=== PATIENT | female | born 1970 | race Caucasian/White ===

== ENCOUNTER 2023-12-14 16:05 | Outpatient (CLI) | payer OTHER, SELFPAY ==
--- NOTE | ~2023-12-14 | XR_ITS ---
XR hip LT min 2V DATE: 12/14/2023 16:27 INDICATION: Medial left hip pain for one year. No injury. Lateral left hip pain for past 3 days after riding a bicycle and physical therapy. TECHNIQUE: AP and lateral views of left hip COMPARISON: None FINDINGS: No fracture or dislocation, avascular necrosis or bone destruction. Left hip joint space ap pears well preserved. Normal alignment at the pubic symphysis and left sacroiliac joint. IMPRESSION: Negative Reviewed, dictated and finalized at location B. IMPRESSION: Negative
== END 2023-12-14 16:06 ==
PROVIDERS: Visit Provider Clinical Nurse Specialist
DX: M25.552 Pain in left hip (principal)
CPT/HCPCS: 73502

== ENCOUNTER 2024-01-24 13:07 | Outpatient (CLI) | payer OTHER, SELFPAY ==
--- NOTE | ~2024-01-24 | CT_ITS ---
CT of the Abdomen and Pelvis: Indication: Abdominal pain Technique: 2.5 mm axial scans were obtained through the abdomen and pelvis following intravenous adm inistration of 100 cc of Omnipaque 350. Dose reduction technique was used on this scan by utilizing a utomated exposure control and iterative reconstruction technique. The dose-length product (DLP) was 6 72.99 mGy-cm. Findings: Scans through the lung bases are unremarkable. The liver, spleen, pancreas, gallbladder, adrenals and kidneys are within normal limits. No evidence of aortic aneurysm. No lymphadenopathy. No bowel obstruction or bowel wall thickening. There is no evidence to suggest acute appendicitis. Images through the pelvis were performed. Urinary bladder unremarkable. No pelvic mass seen. No ascit es. Impression: No significant abnormalities seen. Reviewed, dictated and finalized at location . Impression: No significant abnormalities seen.
== END 2024-01-24 13:08 ==
LOC: MICIMG 13:08
PROVIDERS: PCP Internal Medicine; Visit Provider Surgery
DX: R10.32 Left lower quadrant pain (principal)
CPT/HCPCS: 74177; Q9967

== ENCOUNTER 2024-06-20 14:55 | Outpatient (CLI) | payer OTHER, SELFPAY ==
--- NOTE | ~2024-06-20 | CT_ITS ---
EXAMINATION: CT abdomen pelvis w con DATE: 06/20/2024 15:53 INDICATION: Left lower quadrant abdominal pain. TECHNIQUE: Computed tomography (CT) of the abdomen and pelvis was performed with 100 mL Omnipaque 350 intravenous contrast. Automated exposure control and iterative reconstruction technique were employe d. The dose-length product was 441.68 mGy-cm. COMPARISON: CT abdomen and pelvis 01/24/2024 FINDINGS: The visualized portions of lung bases demonstrate mild atelectasis. No pleural effusion. Th e heart size is normal. No pericardial effusion. The liver, gallbladder, spleen, pancreas, adrenal gl ands, and kidneys are normal. There are scattered diverticula in the colon. There is fat stranding ar ound a sigmoid diverticulum with local bowel wall thickening, consistent with diverticulitis. There a re no dilated loops of bowel. The appendix is not visualized. There is no free intraperitoneal fluid. There is mild lumbar spondylosis and moderate thoracic spondylosis. IMPRESSION: 1. Acute sigmoid diverticulitis. No perforation or abscess. Reviewed, dictated and finalized at location A.
== END 2024-06-20 14:56 | disposition home or self-care (01) ==
PROVIDERS: PCP Internal Medicine; Visit Provider Clinical Nurse Specialist
DX: K57.32 Diverticulitis of large intestine without perforation or abscess without bleeding (principal)
CPT/HCPCS: 74177; Q9967

== ENCOUNTER 2024-07-12 14:43 | Outpatient (CLI) | payer OTHER, SELFPAY ==
[2024-07-12 18:51] LABS: CRP < 0.5 mg/dL (<1.0)
[2024-07-12 19:01] LABS: Erythrocyte Sedimentation Rate 11 mm/hr (0-20)
[2024-07-16 14:44] LABS: Immunoglobulin A 239 mg/dL (47-310); TTG IGA AB <1.0 U/mL
== END 2024-07-12 14:44 | disposition home or self-care (01) ==
LOC: ANHGOSHLAB 14:45
PROVIDERS: PCP Internal Medicine; Visit Provider Nurse Practitioner
DX: R14.0 Abdominal distension (gaseous) (principal); R19.8 Other specified symptoms and signs involving the digestive system and abdomen
CPT/HCPCS: 36415; 82784; 85652; 86140; 86364

== ENCOUNTER 2024-09-08 12:19 | Outpatient (CLI) | payer OTHER, SELFPAY ==
--- NOTE | ~2024-09-08 | MR_ITS ---
EXAMINATION: MR pelvis wo/w con DATE: 09/08/2024 13:44 INDICATION: Left lower quadrant abdominal pain. TECHNIQUE: Magnetic resonance imaging (MRI) of the pelvis was performed without and with 15 mL MultiH ance intravenous contrast. COMPARISON: CT abdomen and pelvis 06/20/2024 FINDINGS: There are no dilated loops of bowel. There is mild fat stranding around a diverticulum of sigmoid col on with interval improvement. A skin marker overlies this area. There are no pathologically enlarged lymph nodes. There is no free intraperitoneal fluid. The uterus and adnexa are unremarkable. IMPRESSION: 1. Mild sigmoid diverticulitis with interval improvement. No perforation or abscess. Reviewed, dictated and finalized at location A. TIC PUMP OPERATOR IMPRESSION: 1. Mild sigmoid diverticulitis with interval improvement. No perforation or abs cess.
== END 2024-09-08 12:20 | disposition home or self-care (01) ==
PROVIDERS: PCP Internal Medicine; Visit Provider Nurse Practitioner
DX: K57.32 Diverticulitis of large intestine without perforation or abscess without bleeding (principal); R19.8 Other specified symptoms and signs involving the digestive system and abdomen
CPT/HCPCS: 72197; A9577

== ENCOUNTER 2024-10-20 11:16 | Outpatient (CLI) | payer OTHER, SELFPAY ==
--- NOTE | ~2024-10-20 | MM_ITS ---
EXAMINATION: MM screening james BI w jazmyn HISTORY: Screening TECHNIQUE: Craniocaudal and mediolateral oblique 3-D tomosynthesis images were obtained and synthetic 2-D images were generated. CAD analysis was submitted and interpreted. COMPARISON: No prior mammogram is available for comparison at this institution. BREAST PARENCHYMAL COMPOSITION: Dense: The breasts are heterogeneously dense, which may obscure small masses FINDINGS: There is no evidence of suspicious mass, calcification, or architectural distortion to sugg est malignancy in either breast. There has been no suspicious interval change. IMPRESSION: 1. No mammographic evidence of malignancy. 2. Recommend routine screening mammography in one year. BI-RADS Category 1: Negative Reviewed, dictated and finalized at location B. GER OPERATOR
== END 2024-10-20 11:17 | disposition home or self-care (01) ==
LOC: MICIMG 11:17
PROVIDERS: Visit Provider Obstetrics & Gynecology
DX: Z12.31 Encounter for screening mammogram for malignant neoplasm of breast (principal)
CPT/HCPCS: 77063; 77067

== ENCOUNTER 2024-11-08 02:47 | Day surgery (SDC) | payer OTHER, SELFPAY ==
[2024-10-29 10:25] VITALS: BMI 25.7
--- OUTSIDE RECORDS SUMMARY | 2024-11-08 02:51 | XMS_ITS ---
Author Organization [facility], [facility] Address [address] [place] [address] Dr. Singh [address] [place] [address] Care Team Providers Care Economic Research Assistant Name Role Phone Israel Laguerre DO Primary Care Provider Cb Almonte [phone] Encounters Encounter Location Date Provider Diagnosis [facility] [address] [place] [address] Dr. Singh [address] [place] [phone] 05/09/2024 Cb Liao Plan Of Treatment No Information Progress Notes * Angelina DECKERDOB:[birth year] (53 yo F)Acc No.[id number]:05/09/2024 Patient: Angelina Eli :1970 A ge:53 Y S ex:Female Address:[address] [place] [address], [place] [id number] Subjective: * Chief Complaints: * * Medical History: * Surgical History: * Hospitalization/Major Diagno stic Procedure: * Medications: Objective: * Examination: C QM Exceptions: Influenza Vaccine not administered: . T D or Tdap vaccine not administered . Z andressa vaccine not administered . Assessment: Plan: * Treatment: * Procedure Codes: * true * Date: Generated for Printi ng/Faxing/eTransmitting on: 0 11/08/2024 02:50 AM YOUNG ADULT LIBRARIAN History and Physical Notes * Examination Category Sub-Category Detail Notes Category Not es CQM Exceptions Influenza Vaccine no t administered: Reason:: Medical Reason Type of Medical Reason:: Not indicated TD or Tdap vaccine not administered Reason:: Med ical reason Zoster vaccine not administered Reason:: Medical reason
--- OUTSIDE RECORDS SUMMARY | 2024-11-08 02:51 | XMS_ITS | Patient Health Record ---
Author Organization [facility] Address [address] [place] [address] Dr. Singh [address] [place] [address] Care Team Providers Care Cement Truck Driver Name Role Phone Israel Laguerre DO Primary Care Provider Cb Almonte Unavailable [phone] Allergies Allergen (clinical drug ingredient) Drug/Non Drug Allergy documented on EMR Reaction Allergy Type Onset Date Status oxycodone Oxycodone Unknown Drug Allergy Active Penicillin Other Drug Allergy Active Reason For Referral No Information Medications Medication SIG (Take, Route, Frequency, Duration) Notes Start Date End Date Status Probiotic Active OTC/Vitamins Magnesium, Symplex F Active Social History Tobacco Use: Social History Observation Description Date Details (start date - stop date) Former Smoker NA - NA Tobacco Use/Smoking Question Answer Notes Are you a former smoker How long has it been since you last smoked? > 10 years Problems Problem Type SNOMED Code ICD Code Onset Dates Problem Status W/U Status Risk Notes Problem Rectal bleeding (27925135) Rectal bleeding (K62.5) Active confirmed Problem Internal hemorrhoids (54452913) Internal hemorrhoids (K64.8) Active confirmed Vital Signs Height 65 in 05/09/2024 Weight 163 lbs 05/09/2024 BMI 27.12 kg/m2 05/09/2024 Encounters Encounter Location Date Provider Diagnosis [facility] [address] [place] [address] Dr. Singh [address] [place] [address] 05/09/2024 Cb Liao Rectal bleeding K62. 5 and Internal hemorrhoids K64.8 [facility], [facility] [address] [facility] [address] [place] [place] [phone] 04/19/2024 Cb Liao [facility], [facility] [address] [facility] [place] [address] 04/20/2024 Cb Liao [facility], [facility] [address] [facility] [facility] [address] [place] [address] 05/09/2024 Cb Liao Assessments Encounter Date Diagnosis (ICD Code) Assessment Notes Treatment Notes Treatment Clinical Notes Section Notes 05/09/2024 Rectal bleeding (ICD-10 - K62.5) The patient is a very healthy 53-year-old lady who over the last 8 months has had 3 or 4 bouts of bright red blood per rectum. She had a colonoscopy 18 months ago that showed small polyps, diverticulosis, and pictures showing internal hemorrhoids. Her digital rectal exam today was unremarkable. I think that she is just having hemorrhoidal bleeding. Given the infrequent nature of her bleeding, I don't think banding is indicated at this point. I gave her reassurance and told her that the best thing she can do is keep her stool soft and avoid straining as she's been doing. I told her that if the bleeding becomes more frequent to let me know and we will proceed on to hemorrhoid banding. Plan: Continue probiotics and magnesium to keep stool soft Call if bleeding worsens and most likely will proceed on to hemorrhoid banding 05/09/2024 Internal hemorrhoids (ICD-10 - K64.8) The patient is a very healthy 53-year-old lady who over the last 8 months has had 3 or 4 bouts of bright red blood per rectum. She had a colonoscopy 18 months ago that showed small polyps, diverticulosis, and pictures showing internal hemorrhoids. Her digital rectal exam today was unremarkable. I think that she is just having hemorrhoidal bleeding. Given the infrequent nature of her bleeding, I don't think banding is indicated at this point. I gave her reassurance and told her that the best thing she can do is keep her stool soft and avoid straining as she's been doing. I told her that if the bleeding becomes more frequent to let me know and we will proceed on to hemorrhoid banding. Plan: Continue probiotics and magnesium to keep stool soft Call if bleeding worsens and most likely will proceed on to hemorrhoid banding Plan Of Treatment No Information Insurance Providers Payer Name Payer Address Payer Phone Subscriber Number Group Number Insured Name Patient Relationship to Insured Coverage Start Date Coverage End Date UMR E2 [address] [address] [place] [address] [id number] Jad Arreguin Spouse - patient is the spouse of the insured Medical (General) History Medical History History ICD Code Colon Polyps Diverticulosis Migraine Headaches Surgical History Surgery Date(Month/Year) Colonoscopy 09/2022 Appendectomy
--- OUTSIDE RECORDS SUMMARY | 2024-11-08 02:51 | XMS_ITS | Continuity of Care Document ---
Author Organization [facility] Address [address] [place] [address] Phone Care Team Providers Care Manufacturing Process Engineer Name Role Phone Tomas Shook DPM Unavailable Unavailable Allergies, Adverse Reactions, Alerts Substance Reaction Status Criticality No Known allergies Procedures Procedure Date OFFICE/OUTPATIENT VISIT NEW Advance Directives Directive Yes / No Effective Date File Name Resuscitation Not Answered N/A N/A Life Support Not Answered N/A N/A Intubation Not Answered N/A N/A Antibiotics Not Answered N/A N/A IV Fluid Support Not Answered N/A N/A Tube Feed Not Answered N/A N/A Other Directive N/A N/A WARNING:The information contained in this section is historical and is provided for information only and does not constitute a legal document or any assurance that the information is still accurate. Please verify the information with the jama of the legal document before using it for clinical purposes. Encounters Encounter Description Practice Location Reason(s) For Visit Diagnoses Date Provider Providers Copied on Encounter OFFICE/OUTPAT IENT VISIT NEW [facility], [address], [place], [address], tel:[phone] [facility] left fourth toe (chief complaint) Interphalangeal (joint), toe sprain [address] [facility] [place]. [address], [place], [place], [id number] . tel:[phone] Referring Provider: Axel Zazueta, [address], [place], [address] . tel:[phone] Family History Family Member Type Diagnosis Age At Onset No Information Payers Payer name Insurance type Covered constitution party ID Erick mehta(s) No Information Social History Type Description Quantity Date Captured Comments Alcohol Use Details wine Caffeine Use Details Unknown Tobacco Use Status No Information Smoking Status Former smoker Smoking Tobacco Use Details Cigarette: No Details Available Cigarette: No Details Available Sex Female Chief Complaint And Reason For Visit From encounter dated '10/18/2013 15:00'. left fourth toe (chief complaint) Reason For Referral Reason For Referral No Information Plan Of Treatment Date Type Action Status Referral Ordered: RADEX FOOT COMPL MINIMUM 3 VIEWS LT ordered History Of Present Illness Encounter Date Complaint History Of Prese nt Illness No Information Functional Status Date Functional Assessmen t No Information Instructions Date Instruction Additional Infor mation Activity as tolerated Ice as instructed Physical activity counseling Rel ated to Dietary Surveillance Counseling Dietary Counseling Related to Di etary Surveillance Counseling Assessments Type Assessment Date No Information Patient Care Teams Name Effective Dates (start - stop) Status Members No Information
--- OUTSIDE RECORDS SUMMARY | 2024-11-08 02:51 | XMS_ITS | Clinical Summary ---
Author Organization [facility] Address [address] [place] [phone] Phone Care Team Providers Care Mill Dresser Name Role Phone Axel Sol MD Primary Care Provider [phone] Allergies No known active allergies Medications ibuprofen (MOTRIN) 800 mg Oral tabletIndicatio ns:as needed with menses Take 800 mg by mouth every 6 hours as needed. Indications: as needed with menses Active docusate sodium (COLACE) 100 mg Oral capsule Take 1 Cap by mouth 2 times daily. Take while taking narcotics for pain 30 Cap 0 0 Active Family History Medical History Relation Name Comments Diabetes Maternal Grandfather Other Mother Heart Disease Paternal Grandfather Diabetes Paternal Grandmother Stroke Paternal Grandmother Relation Name Status Comments Maternal Grandfather Mother Paternal Grandfather Paternal Grandmother Social History Tobacco Use Types Packs/Day Years Used Date Smoking Tobacco: Former Cigarettes Comments:social smoker - 10 cigarettes per week Alcohol Use Standard Drinks/Week Comments Yes 8.3 (1 standard drink = 0.6 oz p ure alcohol) Comments No Sex and Gender Information Value Date Recorded Sex Assigned at Not on file Legal Sex 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 Gender Identity Not on file Sexual Orientation Not on file Last Filed Vital Signs Vital Sign Reading Time Taken Comments Blood Pressure 103/61 04/15/2010 4:36 AM CDT Pulse 60 04/15/2010 7:30 AM CDT Temperature 36.2 C (97.1 F) 04/15/2010 4:36 AM CDT Respiratory Rate 16 04/15/2010 7:30 AM CDT Oxygen Saturation 98% 04/15/2010 4:36 AM CDT Inhaled Oxygen Concentration - - Weight 63 kg (139 lb) 04/15/2010 4:36 AM CDT Height 167.6 cm (5' 6 ) 04/14/2010 11:14 AM CDT Body Mass Index 22.44 04/14/2010 11:14 AM CDT Plan of Treatment Health Maintenance Due Date Last Done Comments DTAP/TDAP/TD VACCINES (1 - Tdap) 1991 HEPATITIS B VACCINES (1 of 3 - 19+ 3-dose series) 1991 CERVICAL CANCER SCREENING 2002 BREAST CANCER SCREENING 2012 COLORECTAL SCREENING 2017 Colorectal Cancer Screening 2017 FIT-DNA Q 3 years 2017 FIT/FOBT Q 1 year 2017 Flex Sig/CT Colonography Q 5 years 2017 ZOSTER VACCINE (1 of 2) 2022 INFLUENZA VACCINE (#1) 2024 PNEUMOCOCCAL VACCINE 0-64 YEARS Aged Out No longer eligible based on patient's age to complete this topic Insurance Advance Directives For more information, please contact: [phone] * Full Code (Latest Code Status on File) Date Activated Date Inactivated Comments 04/14/2010 9:11 PM 04/15/2010 1:47 PM * Full Code Date Activated Date Inactivated Comments 04/14/2010 3:03 PM 04/14/2010 9:11 PM Care Teams Mill Dresser Relationship Specialty Start Date End Date Axel Sol MD [address] [place] [address] PCP - General Family Practice 04/14/10
--- OUTSIDE RECORDS SUMMARY | 2024-11-08 02:51 | XMS_ITS ---
Author Organization [facility] Address [address] [place] [address] Dr. Singh [address] [place] [address] Care Team Providers Care Vegetable Packer Name Role Phone Israel Laguerre DO Primary Care Provider Cb Almonte [phone] REASON FOR VISIT watch for CT report Encounters Encounter Location Date Provider Diagnosis [facility] [address] [place] [address] Dr. Singh [address] [place] [address] 04/20/2024 Cb Liao Plan Of Treatment No Information Progress Notes * Angelina DECKERDOB:[birth year] (53 yo F)Acc No.[id number]:04/20/2024 Patient: Angelina Eli :1970 A ge:53 Y S ex:Female Address:[address] [facility], [place] [address] * true * Date: Generated for Printi ng/Faxing/eTransmitting on: 0 11/08/2024 02:50 AM CARDIOLOGY CONSULTANT
--- OUTSIDE RECORDS SUMMARY | 2024-11-08 02:51 | XMS_ITS ---
Author Organization [facility] Address [address] [place] [address] Dr. Singh [address] [place] [address] Care Team Providers Care Vp Respiratory Name Role Phone Israel Laguerre DO Primary Care Provider Cb Almonte [phone] Allergies Allergen (clinical drug ingredient) Drug/Non Drug Allergy documented on EMR Reaction Allergy Type Onset Date Status oxycodone Oxycodone Unknown Drug Allergy Active Penicillin Other Drug Allergy Active REASON FOR VISIT Rectal Bleeding Medications Medication SIG (Take, Route, Frequency, Duration) [...] W/U Status Risk Notes Problem Rectal bleeding (62561232) Rectal bleeding (K62.5) Active confirmed Problem Internal hemorrhoids (39377656) Internal hemorrhoids (K64.8) Active confirmed Vital Signs Height 65 in 05/09/2024 Weight 163 lbs 05/09/2024 BMI 27.12 kg/m2 05/09/2024 Encounters Encounter Location Date Provider Diagnosis [facility], [address] Singh [address] [place] [address] 05/09/2024 Cb Liao Rectal bleeding K62. 5 and Internal hemorrhoids K64.8 Assessments Encounter Date Diagnosis (ICD Code) Assessment [...] on to hemorrhoid banding Plan Of Treatment Next Appt Details Follow Up: prn, Reason: Progress Notes * Angelina DECKERDOB:[birth year] (53 yo F)Acc No.[id number]:05/09/2024 Patient: Angelina Eli Provider: Ken Liao M.D. :1970 A ge:53 Y S ex:Female Date:05/09/2024 Address:[address] [place] [address] [address] [facility] Pcp:Israel Laguerre DO Subjective: * Chief Complaints: * R ectal Bleeding * HPI: H PI: The patient is a very pleasant and healthy 53-year-old lady who comes in today reporting that over the last 8 months she has had 3 or 4 bouts of bright red blood per rectum. A couple times the blood have dripped in the toilet. She denies hard stools or straining. She takes magnesium and probiotics on a regular basis and this keeps her stool soft. The blood is not mixed into the stool. She last underwent a colonoscopy in September of 2022 in which a couple small tubular adenomas were removed. There was diverticulosis. Pictures at the time did show small internal hemorrhoids. She has no family history of colon cancer. She is having no other GI symptoms including no nausea, vomiting, abdominal pain, or unexplained weight loss. She recently underwent an abdominal pelvic CAT scan because of the bleeding that was unremarkable. * ROS: G I Bleeding: Melena N o. H ematochezia N o. H ematemesis?No. A nemia N o. G I-Stomach: Nausea/Emesis N o. P ain N o. P UD N o.?Anorexia N o. G I-Esophageal: Dysphagia N o. O dynophagia N o. C hest Pain?No. G ER Sx N o. G I-Liver/GB: Jaundice N o. H epatitis N o. G allstones N o. P ancreatitis N o. G I-Colon: Colitis/IBS N o. D iarrhea N o. C onstipation?No. H emorrhoids N o. G eneral/Constitutional: Fever N o. C hills N o. W eight Loss Y es, Change. S kin: Rash N o. P ruritus N o. I cterus N o. P hotosensitivity N o. E NT: Diplopia N o. V isual Loss N o. T innitus Y es. V ertigo Y es. D eafness N o. P oor Dentition N o. H ematology: Easy Bruising N o. H emophilia N o. H ematologic Malignancy N o. L ymphadenopathy N o. H istory of Petechia N o. A nemia?No. C ardiovascular: Palpitations Y es. S yncope N o. P ND N o. D OE N o. O rthopnea N o. C hest Pain?No. R espiratory: Cough N o. S putum Production N o. H emoptysis?No. W heezing N o. T B N o. S OB Y es. N eurologic: Stroke N o. S eizure Disorder N o. T remor Y es. P aralysis N o. S yncope N o. G enitourinary: Dysuria N o. P olyuria N o. I ncontinence Y es. R enal Failure N o. H ematuria N o. M usculoskeletal: Joint Pain Y es. S welling N o. S tiffness N o. M uscle Weakness N o. M yalgia N o. E ndocrine: Thyroid Disease N o. D iabetes N o. P olyphagia?No. P olydipsia N o. P sychiatric: Delusions N o. H allucinations N o. S uicidal Ideations N o. A llergy/Immunology: Hives N o. C hronic Sinusitis N o. H istory of Anaphylaxis N o. * Medical History: * Surgical History: C olonoscopy ppendectomy * Hospitalization/Major Diagno stic Procedure: D enies Past Hospitalization * Family History: N on-Contributory. Denies family history of colon cancer and colon polyps. * Social History: T obacco Use: T obacco Use/Smoking A re you a f ormer smoker, H ow long has it been since you last smoked? > 10 years. D rugs/Alcohol: D o you Drink Alcohol?: Yes, Occasionally. Drugs: No,. Do you Smoke Marijuana?: No. * Medications: T akingProbiotic OTC/Vitamins , Notes: Magnesium, Symplex FMedication List reviewed and reconciled with the patientTaking Probiotic Taking OTC/Vitamins , Notes: Magnesium, Symplex FMedication List reviewed and reconciled with the patient * Allergies: P enicillin: Other - AllergyOxycodone Objective: * Vitals: H t: 65 in, Wt:163 lbs, BMI:27.12 Index. * Examination: P hysical Examination: GENERAL: A ppears stated age, in no apparent distress. S KIN: N o rash, ecchymoses, petechial, or telangiectasia. H EENT: Normocephalic, EOMI, Nasal & buccal mucosa clear. N LYSSA: Supple without masses., Normal Range of Motion, No jugular venous distention. L YMPH NODES: No cervical, supraclavicular, or axillary lymphadenopathy. C ARDIAC: RRR without murmur, gallop, or rub. P ULMONARY: Clear to auscultation and percussion bilaterally. A BDOMEN: B S positive, soft, non-tender, No masses, organomegaly, rebound, or ascites. E XTREMITIES: N o cyanosis, clubbing, or edema. N EUROLOGIC: A lert and oriented x3, No asterixis, Nonfocal examination. C QM Exceptions: Influenza Vaccine not administered: . P neumococcal Vaccine not administered: . * Physical Examination: R ectal exam: Visualization of the perirectal exam was normal. There were no masses in the vault or blood on the glove. Assessment: * Assessment: 1. R ectal bleeding - K62.5 (Primary) 2 . I nternal hemorrhoids - K64.8 The patient is a very health y 53-year-old lady who over the last 8 [...] most likely will proceed on to hemorrhoid banding. Plan: * Treatment: * Procedure Codes: * Preventive Medicine: Counseling: B mi Care goal follow-up plan: B CT management provided Y es,?Above Normal BMI Follow-up D ietary management education, guidance, and counseling. * Follow Up: p rn * Images: * Sign off status: Completed true * Provider: Ken Liao M.D. Date: 0 05/09/2024 Generated for Ann sood/Henry/Jackitting on: 0 11/08/2024 02:50 AM PSYCHIATRIC TECHNICIAN ASSISTANT
[2024-11-08 07:04] VITALS: BP 134/75; PULSE 79; RESP 16; TEMP 36.2; O2SAT 99
[2024-11-08] MEDS: LACTATED RINGERS 1,000 ML 150 ML IV CONT (07:04)
[2024-11-08 07:10] LABS: BEDSIDEPREGUCG Negative (Negative)
--- NOTE | 2024-11-08 07:27 | WPDANESEPPF ---
Anes - Initial Pre Proc Eval Procedure: Operation Date: 11/08/24 08:00 Proposed Procedures p Colonoscopy - Sergio Franco MD s [facility] Hemorrhoid Treatment - Sergio Franco MD Date/Time: 11/08/24 07:27 Surgeon: Sergio Franco MD Pre Op Diagnosis: abd distension, diverticulitis of intestine w/o Patient Data Age: 54 Gender: F Height: 1.65 m Weight: 70.7 kg Last Vital Signs Temp 97.1 F L 11/08/24 07:04 Pulse 79 11/08/24 07:04 Resp 16 11/08/24 07:04 BP 134/75 11/08/24 07:04 Pulse Ox 99 11/08/24 07:04 O2 Del Method Room Air 11/08/24 07:04 Allergies Allergy/AdvReac Type Severity Reaction Status Date / Time oxycodone Allergy Severe Hallucinati Verified 11/08/24 06:56 ng Penicillins Allergy Unknown Unknown Verified 11/08/24 06:56 Home Medications ?Medication ?Instructions ?Recorded ?Confirmed ?Type magnesium 200 mg tablet 200 mg PO DAILY 01/11/24 11/08/24 History lactobacillus combination no.9 4 4,000 mmu cells PO DAILY 07/12/24 11/08/24 History billion cell capsule (Adult 50 Plus Probiotic) clobetasol 0.05 % topical ointment 1 applic topical BID #30 grams 10/02/24 10/29/24 Rx Laboratory Tests 11/08/24 07:07 POC Urine HCG, Qual Negative (Negative) Patient hx anesthesia problems: none Family hx anesthesia problems: none Results Review: All pre-operative results and documents have been reviewed as part of the pre-operative evaluation. [facility] Past Medical History Medical History Irregular periods Screening mammogram for breast cancer Surgical History Surgical History History of gastrointestinal surgery Family History Family History Sibling Alcoholism Grandparent Heart disease Grandparent Alcoholism Diabetes mellitus Sibling Bipolar 1 disorder Sibling Mental disorder Alcoholism Other Suicide Social History Social History Smoking status: Former smoker Second hand tobacco smoke exposure: No Smoking end date: 05/13/05 Alcohol intake: current Drinks per week: 4 Alcohol use details: socially Substance use: never Substance use type: does not use Do You Feel Safe in your Home?: Yes Lack of Transportation: No Lack of Food: Never True Current Housing: Decline to Answer Concerned About Future Housing: Decline to Answer Difficulty Paying Gas/Electric Bills: Decline to Answer Difficulty Paying for Meds: Decline to Answer Currently Unemployed: Decline to Answer Education: Decline to Answer Difficulty w/ Childcare or Family Care: Decline to Answer Living arrangements: with family Additional living arrangements comments: Occupation/Education: occupation Additional occupation/education comments: self employed Gender identity (if verbalized by the patient): Female Sexual Orientation (if Verbalized by the Patient): Straight or Heterosexual Anes - Eval Final PreProcedure Day of Procedure 11/08/24 07:27 Patient weight: normal Lungs: normal air movement Airway: Mallampati scale class II Neurological: alert and oriented Last oral intake: >/= 8 hours ASA classification: I Emergent: no Anesthetic plan: proceed Anesthesia type and monitoring: general GIVS and standard monitoring Results Review: All pre-operative results and documents have been reviewed as part of the pre-operative evaluation. Hx of diverticulitis, now for recheck. Active as w cardio/wts, no cp or sob. Informed Consent: The patient's anesthetic plan and its attendant risks and benefits were discussed with the patient/family/POA. Questions were solicited and answers provided to the satisfaction of the patient/family/POA.
--- NOTE | 2024-11-08 07:50 | PM.HPGS ---
History of Present Illness History of Present Illness Consent: Risks, benefits, and alternatives have been discussed and questions answered. Patient agrees to proceed with procedure. Chief complaint: abd distension, diverticulitis of intestine w/o Narrative: Angelina Decker is a 54 year old female with diverticulitis now asymptomatic, last colonoscopy 2 years ago with polyp, also noted some blood in stools Review of Systems Review of Systems: All systems reviewed & are unremarkable except as noted in HPI and below PMFSH Past Medical History Medical History Irregular periods Screening mammogram for breast cancer Surgical History Surgical History History of gastrointestinal surgery Family History Family History Sibling Alcoholism Grandparent Heart disease Grandparent Alcoholism Diabetes mellitus Sibling Bipolar 1 disorder Sibling Mental disorder Alcoholism Other Suicide Social History Social History Smoking status: Former smoker Second hand tobacco smoke exposure: No Smoking end date: 05/13/05 Alcohol intake: current Drinks per week: 4 Alcohol use details: socially Substance use: never Substance use type: does not use Do You Feel Safe in your Home?: Yes Lack of Transportation: No Lack of Food: Never True Current Housing: Decline to Answer Concerned About Future Housing: Decline to Answer Difficulty Paying Gas/Electric Bills: Decline to Answer Difficulty Paying for Meds: Decline to Answer Currently Unemployed: Decline to Answer Education: Decline to Answer Difficulty w/ Childcare or Family Care: Decline to Answer Living arrangements: with family Additional living arrangements comments: Occupation/Education: occupation Additional occupation/education comments: self employed Gender identity (if verbalized by the patient): Female Sexual Orientation (if Verbalized by the Patient): Straight or Heterosexual Meds Home Medications and Allergies Home Medications ?Medication ?Instructions ?Recorded ?Confirmed ?Type magnesium 200 mg tablet 200 mg PO DAILY 01/11/24 11/08/24 History lactobacillus combination no.9 4 4,000 mmu cells PO DAILY 07/12/24 11/08/24 History billion cell capsule (Adult 50 Plus Probiotic) clobetasol 0.05 % topical ointment 1 applic topical BID #30 grams 10/02/24 10/29/24 Rx Allergies Allergy/AdvReac Type Severity Reaction Status Date / Time oxycodone Allergy Severe Hallucinati Verified 11/08/24 06:56 ng Penicillins Allergy Unknown Unknown Verified 11/08/24 06:56 Vital Signs Vital Signs - 24 hr 11/08/24 07:04 Temperature 97.1 F L Pulse Rate 79 Respiratory Rate 16 Blood Pressure 134/75 Pulse Oximetry 99 Oxygen Delivery Room Air Exam Const: General: comfortable and no acute distress HENMT: Face/Nose/Sinus: Normal nares present Eyes: General: appearance normal, both eyes and all related structures Neck: Neck: no JVD Resp: Auscultation: clear to auscultation bilaterally Cardio: Rate: regular rate Rhythm: regular rhythm GI: Inspection: non-distended GI Palp: Yes Soft to palpation Skin: General skin exam: normal color Neuro: General: gait normal Speech: normal speech Extrem: General: normal to inspection Psych: Mental Status: mental status grossly normal Assessment and Plan Assessment and plan (1) Diverticulitis: Code(s): K57.92 - Diverticulitis of intestine, part unspecified, without perforation or abscess without bleeding Status: Acute Assessment and Plan: resolved colonoscopy (2) Blood in stool, cyndi: Code(s): K92.1 - Melena Status: Acute Assessment and Plan: if internal hemorrhoids then will treat with IRC
[2024-11-08 08:07] VITALS: BP 100/57; PULSE 68; RESP 18; O2SAT 98
--- NOTE | 2024-11-08 08:07 | W.PM.PROC2 ---
Procedure Note - Detailed Date of Procedure 11/08/24 Pre-op Diagnosis hemorrhoids Post-op Diagnosis Same Procedure Performed irc of internal hemorrhoids Surgeon Sergio Franco MD Anesthesia MAC (also had colonoscopy) Description of Procedure noted small size internal hemorrhoids using anoscope, no fissures, no lesion, no bleeding. Then advanced IRC probe and hemorrhoid treated for 1.5 seconds x5
[2024-11-08 08:17] VITALS: BP 101/52; PULSE 69; RESP 16; O2SAT 99
[2024-11-08 08:27] VITALS: BP 105/63; PULSE 70; RESP 18; O2SAT 99
== END 2024-11-08 08:47 | disposition home or self-care (01) ==
PROVIDERS: Anesthesiology; PCP Clinical Nurse Specialist; Referring Provider Nurse Practitioner; Visit Provider Internal Medicine Gastroenterology
PROC: 0DJD8ZZ Inspection of Lower Intestinal Tract, Via Natural or Artificial Opening Endoscopic (ICD-10-PCS; CPT 45378; principal; 2024-11-08 08:00)
PROC: (CPT 46930; 2024-11-08 08:00)
DX: K92.1 Melena (principal); K57.30 Diverticulosis of large intestine without perforation or abscess without bleeding; K63.5 Polyp of colon; K64.8 Other hemorrhoids; Z87.19 Personal history of other diseases of the digestive system; Z87.891 Personal history of nicotine dependence
CPT/HCPCS: 45380; 45385; 46930; 88305; J2704; J7120

== ENCOUNTER 2025-08-16 08:10 | Outpatient (CLI) | payer OTHER, SELFPAY ==
[2025-08-16 12:52] LABS: Hematocrit 43.2 % (37.0-47.0); Hemoglobin 14.1 g/dL (12.0-15.0); Immature Granulocyte Percent A 0.2 % (0-0.5); Lymphocytes Absolute Auto 1.45 K/mm3 (0.9-3.2); Mean Corpuscular HGB Conc 32.6 g/dl (32-36); Mean Corpuscular Hemoglobin 29.6 pg (26-34); Mean Corpuscular Volume 90.8 fl (80-100); Nucleated Red Blood Cells Absolute Auto 0.000 K/mm3 (0.0-0.012); Nucleated Red Blood Cells Perc 0.0 % (0.0-0.2); Platelet Count Result 165 k/mm3 (150-375); Red Blood Count 4.76 M/mm3 (4.2-5.4); White Blood Count 4.1 K/mm3 (4.5-10.0)
[2025-08-16 15:13] LABS: Alanine Aminotransferase 21 U/L (6-35); Albumin Level 4.4 g/dL (3.5-5.1); Alkaline Phosphatase 53 U/L (38-126); Anion Gap 4 mmol/L (4-12); Aspartate Amino Transferase 34 U/L (14-36); Bilirubin,Total 1.5 mg/dL (0.2-1.3); Blood Urea Nitrogen 16 mg/dL (7-17); Calcium 9.3 mg/dL (8.4-10.2); Carbon Dioxide 30 mmol/L (22-30); Chloride 103 mmol/L (98-107); Cholesterol 293 mg/dL (0-200); Estimated Glomerular Filt Rate > 60; Glucose 83 mg/dL (65-110); HDL Direct 72 mg/dL; Magnesium 2.2 mg/dL (1.6-2.3); Potassium 4.3 mmol/L (3.4-5.0); Sodium 137 mmol/L (137-145); Total Protein 7.9 g/dL (6.3-8.2); Triglycerides 125 mg/dL (<150)
[2025-08-16 15:50] LABS: Thyroid Stimulating Hormone 1.260 uIU/mL (0.465-4.680)
== END 2025-08-16 08:11 | disposition home or self-care (01) ==
LOC: ANHGOSHLAB 08:12
PROVIDERS: PCP Clinical Nurse Specialist; Visit Provider Clinical Nurse Specialist
DX: E78.5 Hyperlipidemia, unspecified (principal); E55.9 Vitamin D deficiency, unspecified; Z13.29 Encounter for screening for other suspected endocrine disorder; N92.6 Irregular menstruation, unspecified
CPT/HCPCS: 36415; 80053; 80061; 82306; 83735; 84443; 85025